=== PATIENT | female | born 1945 | race Caucasian/White ===

== ENCOUNTER 2020-05-16 10:37 | Outpatient (CLI) | payer MEDICARE, OTHER, SELFPAY ==
[2020-05-16 11:11] LABS: Basophils Absolute Auto 0.1 K/mm3 (0.0-0.1); Basophils Percent Auto 0.8 % (0.2-1.2); Eosinophils Absolute Auto 0.3 K/mm3 (0-0.3); Eosinophils Percent Auto 3.2 % (0-4.4); Hematocrit 37.3 % (37.0-47.0); Hemoglobin 12.1 g/dL (12.0-15.0); Immature Granulocyte Absolute 0.05 K/mm3 (0.00-0.031); Immature Granulocyte Percent A 0.6 % (0-0.5); Lymphocytes Absolute Auto 1.37 K/mm3 (0.9-3.2); Lymphocytes Percent Auto 15.5 % (18.3-44.2); Mean Corpuscular HGB Conc 32.4 g/dl (32-36); Mean Corpuscular Hemoglobin 31.6 pg (26-34); Mean Corpuscular Volume 97.4 fl (80-100); Mean Platelet Volume 9.8 fl (7.4-10.4); Monocytes Absolute Auto 0.5 K/mm3 (0.1-0.6); Neutrophils Absolute Auto 6.5 K/mm3 (1.3-6.7); Neutrophils Percent Auto 73.9 % (45.5-73.1); Platelet Count Result 309 k/mm3 (150-375); Red Blood Count 3.83 M/mm3 (4.2-5.4); White Blood Count 8.8 K/mm3 (4.5-10.0)
[2020-05-16 11:23] LABS: Alanine Aminotransferase 13 U/L (4-35); Albumin Level 4.5 g/dL (3.5-5.1); Alkaline Phosphatase 131 U/L (38-126); Aspartate Amino Transferase 21 U/L (14-36); Bilirubin,Total 0.4 mg/dL (0.2-1.3); Blood Urea Nitrogen 31 mg/dL (7-17); Calcium 9.2 mg/dL (8.4-10.2); Carbon Dioxide 22 mmol/L (22-30); Chloride 108 mmol/L (98-107); Cholesterol 152 mg/dL (0-200); Estimated Glomerular Filt Rate 40; Glucose 122 mg/dL (65-105); HDL Direct 49 mg/dL; Potassium 5.7 mmol/L (3.4-5.0); Sodium 141 mmol/L (137-145); Triglycerides 164 mg/dL (<150)
[2020-05-16 11:25] LABS: Hemoglobin A1C 6.5 % (<5.7)
[2020-05-16 11:35] LABS: LDL Cholesterol Direct 68 mg/dL
[2020-05-16 11:52] LABS: Microalbumin Urine Random 88.3 mg/L (0-16.7)
[2020-05-16 11:54] LABS: Creatinine Urine 112.9 mg/dL; MALB Creatinine Ratio 78.2 mg/g (0-30)
== END 2020-05-16 10:38 | disposition home or self-care (01) ==
LOC: ANHLAB 10:40
PROVIDERS: PCP Internal Medicine; Visit Provider Internal Medicine
DX: E11.22 Type 2 diabetes mellitus with diabetic chronic kidney disease (principal); N18.3 Chronic kidney disease, stage 3 (moderate); E78.5 Hyperlipidemia, unspecified; I12.9 Hypertensive chronic kidney disease with stage 1 through stage 4 chronic kidney disease, or unspecified chronic kidney disease
CPT/HCPCS: 36415; 80053; 80061; 82043; 83036; 85025

== ENCOUNTER 2020-05-17 07:30 | Outpatient (CLI) | payer MEDICARE, OTHER, SELFPAY ==
[2020-05-17 08:23] LABS: Potassium 5.6 mmol/L (3.4-5.0)
== END 2020-05-17 07:31 | disposition home or self-care (01) ==
LOC: ANHLAB 07:32
PROVIDERS: PCP Internal Medicine; Visit Provider Internal Medicine
DX: E87.5 Hyperkalemia (principal)
CPT/HCPCS: 36415; 84132

== ENCOUNTER 2020-05-21 07:48 | Outpatient (CLI) | payer MEDICARE, OTHER, SELFPAY ==
[2020-05-21 08:22] LABS: Blood Urea Nitrogen 29 mg/dL (7-17); Calcium 9.3 mg/dL (8.4-10.2); Carbon Dioxide 23 mmol/L (22-30); Chloride 109 mmol/L (98-107); Estimated Glomerular Filt Rate 44; Glucose 110 mg/dL (65-105); Potassium 5.6 mmol/L (3.4-5.0); Sodium 140 mmol/L (137-145)
== END 2020-05-21 07:49 | disposition home or self-care (01) ==
LOC: ANHLAB 07:49
PROVIDERS: PCP Internal Medicine; Visit Provider Internal Medicine
DX: E87.5 Hyperkalemia (principal)
CPT/HCPCS: 36415; 80048

== ENCOUNTER 2020-07-22 11:16 | Outpatient (CLI) | payer MEDICARE, OTHER, SELFPAY ==
--- NOTE | ~2020-07-22 | US_ITS ---
EXAMINATION: US renal BI EXAM DATE: 07/22/2020 11:53 INDICATION: Hyperkalemia. TECHNIQUE: Multiple grayscale and Doppler images of the kidneys were obtained (by a technologist who performed the scan) and subsequently reviewed. Comparison is made to prior examination from 10/08/2016 . FINDINGS: Some renal cortical thinning bilaterally. Right kidney: There is normal contour and echogenicity. It measures 9.0 x 5.3 x 4.6 centimeters. Th ere are no focal renal lesions identified. There is no hydronephrosis. Left kidney: There is normal contour and echogenicity. It measures 9.1 x 4.8 x 4.5 centimeters. The re are no focal renal lesions identified. There is no hydronephrosis. Bladder unremarkable. IMPRESSION: 1. Mild renal atrophy. Reviewed, dictated and finalized at location A. IMPRESSION: 1. Mild renal atrophy.
== END 2020-07-22 11:17 | disposition home or self-care (01) ==
PROVIDERS: PCP Internal Medicine; Visit Provider Internal Medicine Nephrology
DX: E87.5 Hyperkalemia (principal)
CPT/HCPCS: 76775

== ENCOUNTER 2020-09-08 10:21 | Outpatient (CLI) | payer MEDICARE, OTHER, SELFPAY ==
[2020-09-08 11:50] LABS: Creatinine Urine 96.3 mg/dL; Total Protein Urine Random 36 mg/dL
[2020-09-08 11:51] LABS: Albumin Level 4.2 g/dL (3.5-5.1); Anion Gap 7 mmol/L (8-16); Blood Urea Nitrogen 24 mg/dL (7-17); Calcium 8.9 mg/dL (8.4-10.2); Carbon Dioxide 26 mmol/L (22-30); Chloride 107 mmol/L (98-107); Estimated Glomerular Filt Rate 44; Glucose 109 mg/dL (65-105); Phosphorus 3.7 mg/dL (2.5-4.5); Potassium 5.2 mmol/L (3.4-5.0); Sodium 140 mmol/L (137-145)
[2020-09-08 12:20] LABS: Potassium Urine Random 36.2 meq/L; Sodium Urine Random 88 meq/L
[2020-09-11 07:35] LABS: Osmolality, Urine 519 mOsm/kg (50-1200)
[2020-09-17 07:44] LABS: Renin 0.63 ng/mL/h (0.25-5.82)
== END 2020-09-08 10:22 | disposition home or self-care (01) ==
LOC: ANHLAB 10:32
PROVIDERS: PCP Internal Medicine; Visit Provider Internal Medicine Nephrology
DX: E87.5 Hyperkalemia (principal); I12.9 Hypertensive chronic kidney disease with stage 1 through stage 4 chronic kidney disease, or unspecified chronic kidney disease; N18.30 Chronic kidney disease, stage 3 unspecified
CPT/HCPCS: 36415; 80069; 82088; 82533; 82570; 83930; 83935; 84133; 84156; 84244; 84300; 85999

== ENCOUNTER 2020-11-15 07:56 | Outpatient (CLI) | payer MEDICARE, OTHER, SELFPAY ==
[2020-11-15 08:29] LABS: Hematocrit 35.2 % (37.0-47.0); Hemoglobin 11.2 g/dL (12.0-15.0); Mean Corpuscular HGB Conc 31.8 g/dl (32-36); Mean Corpuscular Hemoglobin 31.4 pg (26-34); Mean Corpuscular Volume 98.6 fl (80-100); Mean Platelet Volume 9.7 fl (7.4-10.4); Platelet Count Result 317 k/mm3 (150-375); Red Blood Count 3.57 M/mm3 (4.2-5.4); Red Cell Distribution Width 12.7 % (11.5-14.5); White Blood Count 7.1 K/mm3 (4.5-10.0)
[2020-11-15 08:43] LABS: Alanine Aminotransferase 15 U/L (4-35); Albumin Level 4.2 g/dL (3.5-5.1); Alkaline Phosphatase 114 U/L (38-126); Anion Gap 8 mmol/L (8-16); Aspartate Amino Transferase 22 U/L (14-36); Bilirubin,Total 0.6 mg/dL (0.2-1.3); Blood Urea Nitrogen 23 mg/dL (7-17); Calcium 8.6 mg/dL (8.4-10.2); Carbon Dioxide 25 mmol/L (22-30); Chloride 106 mmol/L (98-107); Estimated Glomerular Filt Rate 48; Glucose 153 mg/dL (65-105); Potassium 4.5 mmol/L (3.4-5.0); Sodium 139 mmol/L (137-145)
[2020-11-15 08:56] LABS: Creatinine Urine 152.3 mg/dL
[2020-11-15 09:11] LABS: Vitamin D 25 Hydroxy 57.6 ng/mL
[2020-11-15 10:18] LABS: MALB Creatinine Ratio 388.4 mg/g (0-30); Microalbumin Urine Random 591.6 mg/L (0-16.7)
== END 2020-11-15 07:57 | disposition home or self-care (01) ==
PROVIDERS: PCP Internal Medicine; Referring Provider Internal Medicine Nephrology; Visit Provider Internal Medicine
DX: E11.22 Type 2 diabetes mellitus with diabetic chronic kidney disease (principal); E11.69 Type 2 diabetes mellitus with other specified complication; E27.49 Other adrenocortical insufficiency; E66.9 Obesity, unspecified; E78.5 Hyperlipidemia, unspecified; E87.5 Hyperkalemia; I12.9 Hypertensive chronic kidney disease with stage 1 through stage 4 chronic kidney disease, or unspecified chronic kidney disease; N18.30 Chronic kidney disease, stage 3 unspecified
CPT/HCPCS: 36415; 80053; 82043; 82306; 83036; 84443; 85027

== ENCOUNTER 2020-11-19 10:05 | Outpatient (CLI) | payer MEDICARE, OTHER, SELFPAY | END 2020-11-19 10:06 | disposition home or self-care (01) | LOC: ANHLAB 10:08 | PROVIDERS: PCP Internal Medicine; Visit Provider Internal Medicine | DX: E27.49 Other adrenocortical insufficiency (principal) | CPT/HCPCS: 36415; 82533 ==

== ENCOUNTER 2021-01-05 09:27 | Outpatient (CLI) | payer MEDICARE, OTHER, SELFPAY ==
[2021-01-05 10:14] LABS: Albumin Level 4.2 g/dL (3.5-5.1); Anion Gap 8 mmol/L (8-16); Blood Urea Nitrogen 24 mg/dL (7-17); Calcium 9.1 mg/dL (8.4-10.2); Carbon Dioxide 27 mmol/L (22-30); Chloride 105 mmol/L (98-107); Estimated Glomerular Filt Rate 44; Glucose 187 mg/dL (65-105); Phosphorus 3.5 mg/dL (2.5-4.5); Potassium 4.3 mmol/L (3.4-5.0); Sodium 140 mmol/L (137-145)
== END 2021-01-05 09:28 | disposition home or self-care (01) ==
PROVIDERS: PCP Internal Medicine; Visit Provider Internal Medicine Nephrology
DX: E87.5 Hyperkalemia (principal); E11.29 Type 2 diabetes mellitus with other diabetic kidney complication; N18.31 Chronic kidney disease, stage 3a
CPT/HCPCS: 36415; 80069; 82533

== ENCOUNTER 2021-01-14 12:19 | Outpatient (CLI) | payer MEDICARE, OTHER, SELFPAY ==
[2021-01-14 12:50] LABS: Hemoglobin A1C 6.5 % (<5.7)
[2021-01-14 13:15] LABS: Creatinine Urine 93.1 mg/dL
[2021-01-14 13:48] LABS: Microalbumin Urine Random > 570.0 mg/L (0-16.7)
== END 2021-01-14 12:20 | disposition home or self-care (01) ==
PROVIDERS: PCP Internal Medicine; Visit Provider Internal Medicine
DX: E66.9 Obesity, unspecified (principal); E11.69 Type 2 diabetes mellitus with other specified complication; E03.9 Hypothyroidism, unspecified
CPT/HCPCS: 36415; 82043; 83036; 84443

== ENCOUNTER 2021-03-11 10:50 | Outpatient (CLI) | payer MEDICARE, OTHER, SELFPAY ==
[2021-03-11 11:46] LABS: Albumin Level 4.1 g/dL (3.5-5.1); Anion Gap 7 mmol/L (8-16); Blood Urea Nitrogen 27 mg/dL (7-17); Calcium 9.3 mg/dL (8.4-10.2); Carbon Dioxide 27 mmol/L (22-30); Chloride 106 mmol/L (98-107); Estimated Glomerular Filt Rate 44; Glucose 193 mg/dL (65-105); Potassium 4.6 mmol/L (3.4-5.0); Sodium 140 mmol/L (137-145)
== END 2021-03-11 10:51 | disposition home or self-care (01) ==
PROVIDERS: PCP Internal Medicine; Referring Provider Internal Medicine; Visit Provider Internal Medicine Nephrology
DX: E87.5 Hyperkalemia (principal); N18.31 Chronic kidney disease, stage 3a; E11.29 Type 2 diabetes mellitus with other diabetic kidney complication
CPT/HCPCS: 36415; 80069

== ENCOUNTER 2021-05-14 10:28 | Outpatient (CLI) | payer MEDICARE, OTHER, SELFPAY ==
[2021-05-14 11:21] LABS: Basophils Absolute Auto 0.1 K/mm3 (0.0-0.1); Basophils Percent Auto 0.7 % (0.2-1.2); Eosinophils Absolute Auto 0.2 K/mm3 (0-0.3); Eosinophils Percent Auto 1.6 % (0-4.4); Hematocrit 35.7 % (37.0-47.0); Hemoglobin 11.2 g/dL (12.0-15.0); Immature Granulocyte Absolute 0.04 K/mm3 (0.00-0.031); Immature Granulocyte Percent A 0.4 % (0-0.5); Lymphocytes Absolute Auto 1.74 K/mm3 (0.9-3.2); Lymphocytes Percent Auto 17.2 % (18.3-44.2); Mean Corpuscular HGB Conc 31.4 g/dl (32-36); Mean Corpuscular Hemoglobin 30.4 pg (26-34); Mean Corpuscular Volume 96.7 fl (80-100); Mean Platelet Volume 9.5 fl (7.4-10.4); Monocytes Absolute Auto 0.7 K/mm3 (0.1-0.6); Monocytes Percent Auto 6.5 % (2.6-8.5); Neutrophils Absolute Auto 7.4 K/mm3 (1.3-6.7); Neutrophils Percent Auto 73.6 % (45.5-73.1); Platelet Count Result 321 k/mm3 (150-375); Red Blood Count 3.69 M/mm3 (4.2-5.4); Red Cell Distribution Width 13.2 % (11.5-14.5); White Blood Count 10.1 K/mm3 (4.5-10.0)
[2021-05-14 11:31] LABS: Albumin Level 4.3 g/dL (3.5-5.1); Anion Gap 7 mmol/L (8-16); Blood Urea Nitrogen 20 mg/dL (7-17); Calcium 8.8 mg/dL (8.4-10.2); Carbon Dioxide 24 mmol/L (22-30); Chloride 109 mmol/L (98-107); Estimated Glomerular Filt Rate 40; Glucose 109 mg/dL (65-105); Phosphorus 3.6 mg/dL (2.5-4.5); Potassium 5.3 mmol/L (3.4-5.0); Sodium 140 mmol/L (137-145)
[2021-05-14 11:40] LABS: Alanine Aminotransferase 14 U/L (4-35); Albumin Level 4.3 g/dL (3.5-5.1); Alkaline Phosphatase 132 U/L (38-126); Anion Gap 11 mmol/L (8-16); Aspartate Amino Transferase 26 U/L (14-36); Bilirubin,Total 0.4 mg/dL (0.2-1.3); Blood Urea Nitrogen 20 mg/dL (7-17); Calcium 8.9 mg/dL (8.4-10.2); Carbon Dioxide 23 mmol/L (22-30); Chloride 106 mmol/L (98-107); Cholesterol 156 mg/dL (0-200); Estimated Glomerular Filt Rate 40; Glucose 111 mg/dL (65-105); HDL Direct 56 mg/dL; Potassium 5.2 mmol/L (3.4-5.0); Sodium 140 mmol/L (137-145); Triglycerides 149 mg/dL (<150)
[2021-05-14 11:51] LABS: LDL Cholesterol Direct 62 mg/dL
[2021-05-14 12:08] LABS: Creatinine Urine 185.1 mg/dL
[2021-05-14 12:27] LABS: MALB Creatinine Ratio 130.3 mg/g (0-30); Microalbumin Urine Random 241.2 mg/L (0-16.7)
[2021-05-14 12:32] LABS: Hemoglobin A1C 6.8 % (<5.7)
== END 2021-05-14 10:29 | disposition home or self-care (01) ==
LOC: ANHLAB 10:31
PROVIDERS: PCP Internal Medicine; Visit Provider Internal Medicine Nephrology
DX: E87.5 Hyperkalemia (principal); I12.9 Hypertensive chronic kidney disease with stage 1 through stage 4 chronic kidney disease, or unspecified chronic kidney disease; E87.2 Acidosis; N18.30 Chronic kidney disease, stage 3 unspecified; E11.22 Type 2 diabetes mellitus with diabetic chronic kidney disease
CPT/HCPCS: 36415; 80053; 80061; 80069; 82043; 83036; 85025

== ENCOUNTER 2021-06-17 12:12 | Outpatient (CLI) | payer MEDICARE, OTHER, SELFPAY ==
[2021-06-17 13:15] LABS: Anion Gap 11 mmol/L (8-16); Blood Urea Nitrogen 23 mg/dL (7-17); Calcium 9.3 mg/dL (8.4-10.2); Carbon Dioxide 23 mmol/L (22-30); Chloride 106 mmol/L (98-107); Estimated Glomerular Filt Rate 40; Glucose 103 mg/dL (65-110); Potassium 4.8 mmol/L (3.4-5.0); Sodium 140 mmol/L (137-145)
== END 2021-06-17 12:13 | disposition home or self-care (01) ==
PROVIDERS: PCP Internal Medicine; Visit Provider Internal Medicine
DX: I10 Essential (primary) hypertension (principal)
CPT/HCPCS: 36415; 80048

== ENCOUNTER 2021-07-24 10:52 | Outpatient (CLI) | payer MEDICARE, OTHER, SELFPAY ==
[2021-07-24 12:01] LABS: Albumin Level 4.1 g/dL (3.5-5.1); Anion Gap 10 mmol/L (8-16); Blood Urea Nitrogen 23 mg/dL (7-17); Calcium 8.8 mg/dL (8.4-10.2); Carbon Dioxide 23 mmol/L (22-30); Chloride 106 mmol/L (98-107); Estimated Glomerular Filt Rate 44; Glucose 152 mg/dL (65-110); Phosphorus 3.5 mg/dL (2.5-4.5); Potassium 4.5 mmol/L (3.4-5.0); Sodium 139 mmol/L (137-145)
== END 2021-07-24 10:53 | disposition home or self-care (01) ==
PROVIDERS: PCP Internal Medicine; Visit Provider Internal Medicine Nephrology
DX: E87.5 Hyperkalemia (principal)
CPT/HCPCS: 36415; 80069

== ENCOUNTER 2021-09-22 10:29 | Outpatient (CLI) | payer MEDICARE, OTHER, SELFPAY ==
[2021-09-22 11:38] LABS: Creatinine Urine 135.1 mg/dL; Total Protein Urine Random 51 mg/dL; Ur Ttl Prot Creatinine Ratio 0.38 mg/mg (0-0.20)
[2021-09-22 11:43] LABS: Albumin Level 4.3 g/dL (3.5-5.1); Anion Gap 12 mmol/L (8-16); Blood Urea Nitrogen 22 mg/dL (7-17); Calcium 9.2 mg/dL (8.4-10.2); Carbon Dioxide 24 mmol/L (22-30); Chloride 104 mmol/L (98-107); Estimated Glomerular Filt Rate 44; Glucose 146 mg/dL (65-110); Phosphorus 3.5 mg/dL (2.5-4.5); Potassium 4.9 mmol/L (3.4-5.0); Sodium 140 mmol/L (137-145)
[2021-09-22 11:53] LABS: Parathyroid Intact 33.9 pg/mL (7.5-53.5)
[2021-09-22 11:59] LABS: Vitamin D 25 Hydroxy 57.6 ng/mL
== END 2021-09-22 10:30 | disposition home or self-care (01) ==
PROVIDERS: PCP Internal Medicine; Visit Provider Internal Medicine Nephrology
DX: I12.9 Hypertensive chronic kidney disease with stage 1 through stage 4 chronic kidney disease, or unspecified chronic kidney disease (principal); N18.31 Chronic kidney disease, stage 3a; E87.5 Hyperkalemia; E11.29 Type 2 diabetes mellitus with other diabetic kidney complication
CPT/HCPCS: 36415; 80069; 82306; 82570; 83970; 84156

== ENCOUNTER 2021-12-28 10:24 | Outpatient (CLI) | payer MEDICARE, OTHER, SELFPAY ==
[2021-12-28 10:47] LABS: Basophils Absolute Auto 0.1 K/mm3 (0.0-0.1); Basophils Percent Auto 0.7 % (0.2-1.2); Eosinophils Absolute Auto 0.3 K/mm3 (0-0.3); Eosinophils Percent Auto 3.6 % (0-4.4); Hematocrit 35.3 % (37.0-47.0); Hemoglobin 10.9 g/dL (12.0-15.0); Immature Granulocyte Absolute 0.03 K/mm3 (0.00-0.031); Immature Granulocyte Percent A 0.4 % (0-0.5); Immature Platelet Fraction Pct 2.4 % (0.9-11.2); Lymphocytes Absolute Auto 1.68 K/mm3 (0.9-3.2); Lymphocytes Percent Auto 20.6 % (18.3-44.2); Mean Corpuscular HGB Conc 30.9 g/dl (32-36); Mean Corpuscular Hemoglobin 31.1 pg (26-34); Mean Corpuscular Volume 100.9 fl (80-100); Mean Platelet Volume 9.6 fl (7.4-10.4); Monocytes Absolute Auto 0.7 K/mm3 (0.1-0.6); Monocytes Percent Auto 8.3 % (2.6-8.5); Neutrophils Absolute Auto 5.4 K/mm3 (1.3-6.7); Neutrophils Percent Auto 66.4 % (45.5-73.1); Platelet Count Result 362 k/mm3 (150-375); Red Cell Distribution Width 13.1 % (11.5-14.5); White Blood Count 8.2 K/mm3 (4.5-10.0)
[2021-12-28 11:01] LABS: Alanine Aminotransferase 17 U/L (4-35); Albumin Level 4.2 g/dL (3.5-5.1); Alkaline Phosphatase 126 U/L (38-126); Anion Gap 11 mmol/L (8-16); Aspartate Amino Transferase 24 U/L (14-36); Bilirubin,Total 0.5 mg/dL (0.2-1.3); Blood Urea Nitrogen 21 mg/dL (7-17); Carbon Dioxide 24 mmol/L (22-30); Chloride 107 mmol/L (98-107); Estimated Glomerular Filt Rate 48; Glucose 137 mg/dL (65-110); Potassium 4.5 mmol/L (3.4-5.0); Sodium 142 mmol/L (137-145)
[2021-12-28 11:24] LABS: Hemoglobin A1C 6.4 % (<5.7)
[2021-12-28 11:52] LABS: Creatinine Urine 151.5 mg/dL
[2021-12-28 14:05] LABS: MALB Creatinine Ratio 295.1 mg/g (0-30); Microalbumin Urine Random 447.1 mg/L (0-16.7)
== END 2021-12-28 10:25 | disposition home or self-care (01) ==
PROVIDERS: PCP Internal Medicine; Visit Provider Internal Medicine
DX: E11.22 Type 2 diabetes mellitus with diabetic chronic kidney disease (principal); E11.69 Type 2 diabetes mellitus with other specified complication; E55.9 Vitamin D deficiency, unspecified; E66.9 Obesity, unspecified; E78.5 Hyperlipidemia, unspecified; E03.9 Hypothyroidism, unspecified; I12.9 Hypertensive chronic kidney disease with stage 1 through stage 4 chronic kidney disease, or unspecified chronic kidney disease; N18.30 Chronic kidney disease, stage 3 unspecified
CPT/HCPCS: 36415; 80053; 82043; 83036; 84443; 85025; 85055

== ENCOUNTER 2022-01-08 10:28 | Outpatient (CLI) | payer MEDICARE, OTHER, SELFPAY ==
[2022-01-08 10:57] LABS: Basophils Absolute Auto 0.1 K/mm3 (0.0-0.1); Basophils Percent Auto 1.1 % (0.2-1.2); Eosinophils Absolute Auto 0.2 K/mm3 (0-0.3); Eosinophils Percent Auto 2.9 % (0-4.4); Hematocrit 35.6 % (37.0-47.0); Hemoglobin 11.1 g/dL (12.0-15.0); Immature Granulocyte Absolute 0.04 K/mm3 (0.00-0.031); Immature Granulocyte Percent A 0.5 % (0-0.5); Immature Reticulocyte Fraction 16.4 % (3.0-15.9); Lymphocytes Absolute Auto 1.58 K/mm3 (0.9-3.2); Lymphocytes Percent Auto 18.9 % (18.3-44.2); Mean Corpuscular HGB Conc 31.2 g/dl (32-36); Mean Corpuscular Hemoglobin 31.2 pg (26-34); Mean Platelet Volume 9.5 fl (7.4-10.4); Monocytes Absolute Auto 0.6 K/mm3 (0.1-0.6); Monocytes Percent Auto 6.7 % (2.6-8.5); Neutrophils Absolute Auto 5.8 K/mm3 (1.3-6.7); Neutrophils Percent Auto 69.9 % (45.5-73.1); Platelet Count Result 350 k/mm3 (150-375); Red Blood Count 3.56 M/mm3 (4.2-5.4); Red Cell Distribution Width 13.1 % (11.5-14.5); Reticulocyte Hemoglobin Conten 33.8 pg (28.2-35.7); Reticulocyte Percent 1.75 % (0.7-4.3); Reticulocytes Absolute 0.06 B/L (32.2-175.7); White Blood Count 8.4 K/mm3 (4.5-10.0)
[2022-01-08 11:11] LABS: Lactate Dehydrogenase 342 U/L (313-618)
[2022-01-08 12:18] LABS: Vitamin B12 > 1000.0 pg/mL (239-931)
== END 2022-01-08 10:29 | disposition home or self-care (01) ==
LOC: ANHLAB 10:32
PROVIDERS: PCP Internal Medicine; Visit Provider Internal Medicine
DX: D53.1 Other megaloblastic anemias, not elsewhere classified (principal)
CPT/HCPCS: 36415; 82607; 82746; 83615; 85025; 85046

== ENCOUNTER 2022-03-17 00:50 | Day surgery (SDC) | payer MEDICARE, OTHER, SELFPAY ==
[2022-02-26 09:00] VITALS: BMI 30.2
--- NOTE | 2022-03-17 07:10 | PM.HPGS ---
History of Present Illness History of Present Illness Consent: Risks, benefits, and alternatives have been discussed and questions answered. Patient agrees to proceed with procedure. Chief complaint: neoplasm screening Narrative: Haylee Smith is a 76 year old female Referred for colon cancer screening. Review of Systems Review of Systems: All systems reviewed & are unremarkable except as noted in HPI and below PMFSH Family History Family History Mother Family history of Alzheimer's disease Family history of malignant melanoma Sibling Cerebrovascular accident Family history of diabetes mellitus in first degree relative Family history of thyroid disease Hypertension Father Malignant neoplasm of prostate Family history of malignant neoplasm of bone Grandparent Family history of primary malignant neoplasm of liver Other Diabetes mellitus Social History Social History Smoking status: Never smoker Second hand tobacco smoke exposure: Yes Alcohol intake: never Alcohol use details: Social Substance use: never Substance use type: does not use Living arrangements: with family Spiritual care concerns: No Meds Home Medications and Allergies Home Medications Medication Instructions Recorded Confirmed Type aspirin 81 mg tablet,delayed 81 mg PO DAILY 11/14/19 02/26/22 History release calcium citrate 250 mg PO DAILY 11/14/19 02/26/22 History cranberry 400 mg capsule 400 mg PO DAILY 11/14/19 02/26/22 History blood-glucose meter #1 each 12/11/19 01/05/22 Rx cholecalciferol (vitamin D3) 25 25 mcg PO DAILY 05/14/20 02/26/22 History mcg (1,000 unit) chewable tablet amlodipine 10 mg tablet 10 mg PO DAILY #90 tablet 05/20/21 02/26/22 Rx blood sugar diagnostic See Rx Instructions .ROUTE 09/24/21 02/26/22 Rx .COMPLEX #100 strip semaglutide [Rybelsus] 3 mg PO DAILY 02/26/22 02/26/22 History atorvastatin 40 mg tablet 40 mg PO DAILY #90 tablet 03/01/22 Rx metformin 1,000 mg tablet See Rx Instructions .ROUTE 03/01/22 Rx .COMPLEX #180 tablet carvedilol 6.25 mg tablet 6.25 mg PO BID #180 tablet 03/15/22 Rx levothyroxine 50 mcg tablet 50 mcg PO DAILY #90 tablet 05/09/22 Rx lisinopril 20 mg tablet 20 mg PO DAILY #90 tablet 03/15/22 Rx omeprazole 20 mg capsule,delayed See Rx Instructions .ROUTE 03/15/22 Rx release .COMPLEX #90 cap Allergies Allergy/AdvReac Type Severity Reaction Status Date / Time metronidazole Allergy Mild Hives Verified 03/17/22 07:33 Sulfa (Sulfonamide Allergy Mild Hives Verified 03/17/22 07:33 Antibiotics) sulfanilamide Allergy Mild Hives Verified 03/17/22 07:33 Exam Resp: Auscultation: clear to auscultation bilaterally Cardio: Rate: regular rate Rhythm: regular rhythm GI: GI Palp: Yes Soft to palpation and No Tenderness to palpation present (GI) Assessment and Plan Assessment and plan (1) Encounter for screening colonoscopy: Code(s): Z12.11 - Encounter for screening for malignant neoplasm of colon Status: Acute Assessment and Plan: Colonoscopy with possible biopsy or polypectomy or cautery or injection of substances.
[2022-03-17 07:25] VITALS: BP 182/84; PULSE 98; RESP 16; TEMP 36.1; O2SAT 99; BMI 29.3
[2022-03-17] MEDS: LACTATED RINGERS 1,000 ML 150 ML IV CONT (07:48)
[2022-03-17 07:49] LABS: Glucose Point of Care 173 mg/dl (65-105)
--- NOTE | 2022-03-17 07:58 | WPDANESEPPF ---
Anes - Initial Pre Proc Eval Procedure: Operation Date: 03/17/22 09:00 Proposed Procedures p Screening Colonoscopy - Solo Le MD Date/Time: 03/17/22 07:58 Surgeon: Solo Le MD Pre Op Diagnosis: neoplasm screening Patient Data Age: 76 Gender: F Height: 1.68 m Weight: 82.4 kg Last Vital Signs Temp 97.0 F L 03/17/22 07:25 Pulse 98 03/17/22 07:25 Resp 16 03/17/22 07:25 BP 182/84 H 03/17/22 07:25 Pulse Ox 99 03/17/22 07:25 Allergies Allergy/AdvReac Type Severity Reaction Status Date / Time metronidazole Allergy Mild Hives Verified 03/17/22 07:33 Sulfa (Sulfonamide Allergy Mild Hives Verified 03/17/22 07:33 Antibiotics) sulfanilamide Allergy Mild Hives Verified 03/17/22 07:33 Home Medications Medication Instructions Recorded Confirmed Type aspirin 81 mg tablet,delayed 81 mg PO DAILY 11/14/19 03/17/22 History release calcium citrate 250 mg PO DAILY 11/14/19 03/17/22 History cranberry 400 mg capsule 400 mg PO DAILY 11/14/19 03/17/22 History blood-glucose meter #1 each 12/11/19 03/17/22 Rx cholecalciferol (vitamin D3) 25 25 mcg PO DAILY 05/14/20 03/17/22 History mcg (1,000 unit) chewable tablet amlodipine 10 mg tablet 10 mg PO DAILY #90 tablet 05/20/21 03/17/22 Rx blood sugar diagnostic See Rx Instructions .ROUTE 09/24/21 03/17/22 Rx .COMPLEX #100 strip semaglutide [Rybelsus] 3 mg PO DAILY 02/26/22 03/17/22 History atorvastatin 40 mg tablet 40 mg PO DAILY #90 tablet 03/01/22 03/17/22 Rx metformin 1,000 mg tablet See Rx Instructions .ROUTE 03/01/22 03/17/22 Rx .COMPLEX #180 tablet carvedilol 6.25 mg tablet 6.25 mg PO BID #180 tablet 03/15/22 03/17/22 Rx levothyroxine 50 mcg tablet 50 mcg PO DAILY #90 tablet 03/15/22 03/17/22 Rx lisinopril 20 mg tablet 20 mg PO DAILY #90 tablet 03/15/22 03/17/22 Rx omeprazole 20 mg capsule,delayed See Rx Instructions .ROUTE 03/15/22 03/17/22 Rx release .COMPLEX #90 cap Laboratory Tests 03/17/22 07:41 POC Capillary Glucose 173 mg/dl H mg/dl (65-105) Patient hx anesthesia problems: none Family hx anesthesia problems: none Results Review: All pre-operative results and documents have been reviewed as part of the pre-operative evaluation. [facility] Family History Family History Mother Family history of Alzheimer's disease Family history of malignant melanoma Sibling Cerebrovascular accident Family history of diabetes mellitus in first degree relative Family history of thyroid disease Hypertension Father Malignant neoplasm of prostate Family history of malignant neoplasm of bone Grandparent Family history of primary malignant neoplasm of liver Other Diabetes mellitus Social History Social History Smoking status: Never smoker Second hand tobacco smoke exposure: Yes Alcohol intake: never Alcohol use details: Social Substance use: never Substance use type: does not use Living arrangements: with family Spiritual care concerns: No Anes - Eval Final PreProcedure Day of Procedure 03/17/22 07:58 Patient weight: obese Heart: regular rate and rhythm Lungs: clear to auscultation Airway: Mallampati scale class III Neurological: alert and oriented Last oral intake: >/= 8 hours ASA classification: III Emergent: no Anesthetic plan: proceed Anesthesia type and monitoring: general GIVS and standard monitoring Results Review: All pre-operative results and documents have been reviewed as part of the pre-operative evaluation. Informed Consent: The patient's anesthetic plan and its attendant risks and benefits were discussed with the patient/family/POA. Questions were solicited and answers provided to the satisfaction of the patient/family/POA.
[2022-03-17 08:46] VITALS: BP 107/55; PULSE 71; RESP 27; O2SAT 95
[2022-03-17 08:56] VITALS: BP 133/65; PULSE 75; RESP 21; O2SAT 97
[2022-03-17 09:06] VITALS: BP 136/69; PULSE 72; RESP 20; O2SAT 98
== END 2022-03-17 09:18 | disposition home or self-care (01) ==
PROVIDERS: PCP Internal Medicine; Visit Provider Internal Medicine Gastroenterology
PROC: 0DJD8ZZ Inspection of Lower Intestinal Tract, Via Natural or Artificial Opening Endoscopic (ICD-10-PCS; CPT 45378; principal; 2022-03-17 09:00)
DX: Z12.11 Encounter for screening for malignant neoplasm of colon (principal); K64.8 Other hemorrhoids; K57.30 Diverticulosis of large intestine without perforation or abscess without bleeding; Z79.84 Long term (current) use of oral hypoglycemic drugs; E66.9 Obesity, unspecified; Z68.29 Body mass index [BMI] 29.0-29.9, adult
CPT/HCPCS: G0121; 82948; J2704; J7120

== ENCOUNTER 2022-03-25 11:11 | Outpatient (CLI) | payer MEDICARE, OTHER, SELFPAY ==
[2022-03-25 11:33] LABS: Basophils Absolute Auto 0.1 K/mm3 (0.0-0.1); Basophils Percent Auto 0.8 % (0.2-1.2); Eosinophils Absolute Auto 0.2 K/mm3 (0-0.3); Eosinophils Percent Auto 1.8 % (0-4.4); Hematocrit 36.5 % (37.0-47.0); Hemoglobin 11.3 g/dL (12.0-15.0); Immature Granulocyte Absolute 0.04 K/mm3 (0.00-0.031); Immature Granulocyte Percent A 0.4 % (0-0.5); Lymphocytes Absolute Auto 1.59 K/mm3 (0.9-3.2); Mean Corpuscular Hemoglobin 30.9 pg (26-34); Mean Corpuscular Volume 99.7 fl (80-100); Mean Platelet Volume 9.6 fl (7.4-10.4); Monocytes Absolute Auto 0.6 K/mm3 (0.1-0.6); Monocytes Percent Auto 5.9 % (2.6-8.5); Neutrophils Absolute Auto 8.1 K/mm3 (1.3-6.7); Neutrophils Percent Auto 76.1 % (45.5-73.1); Platelet Count Result 361 k/mm3 (150-375); Red Blood Count 3.66 M/mm3 (4.2-5.4); Red Cell Distribution Width 12.8 % (11.5-14.5); White Blood Count 10.6 K/mm3 (4.5-10.0)
[2022-03-25 15:27] LABS: Iron 67 ug/dL (37-170)
[2022-03-25 15:29] LABS: Alanine Aminotransferase 13 U/L (6-35); Albumin Level 4.4 g/dL (3.5-5.1); Alkaline Phosphatase 128 U/L (38-126); Anion Gap 11 mmol/L (8-16); Aspartate Amino Transferase 21 U/L (14-36); Bilirubin,Total 0.5 mg/dL (0.2-1.3); Blood Urea Nitrogen 28 mg/dL (7-17); Carbon Dioxide 23 mmol/L (22-30); Chloride 103 mmol/L (98-107); Estimated Glomerular Filt Rate 44; Glucose 116 mg/dL (65-110); Potassium 4.7 mmol/L (3.4-5.0); Sodium 137 mmol/L (137-145)
[2022-03-25 15:36] LABS: Percent Iron Saturation 20 % (20-50)
[2022-03-25 17:18] LABS: Folic Acid 14.9 ng/mL (2.76->20); Vitamin B12 > 1000.0 pg/mL (239-931)
[2022-03-29 23:56] LABS: Methylmalonic Acid 192 nmol/L (87-318)
== END 2022-03-25 11:12 | disposition home or self-care (01) ==
LOC: ANHLAB 11:13
PROVIDERS: PCP Internal Medicine; Visit Provider Internal Medicine Hematology & Oncology
DX: D64.9 Anemia, unspecified (principal)
CPT/HCPCS: 36415; 80053; 82607; 82728; 82746; 83540; 83550; 83921; 84443; 85025

== ENCOUNTER 2022-07-15 10:27 | Outpatient (CLI) | payer MEDICARE, OTHER, SELFPAY ==
[2022-07-15 12:13] LABS: Alanine Aminotransferase 12 U/L (6-35); Albumin Level 4.4 g/dL (3.5-5.1); Alkaline Phosphatase 112 U/L (38-126); Anion Gap 14 mmol/L (8-16); Aspartate Amino Transferase 20 U/L (14-36); Bilirubin,Total 0.6 mg/dL (0.2-1.3); Blood Urea Nitrogen 18 mg/dL (7-17); Calcium 8.7 mg/dL (8.4-10.2); Carbon Dioxide 24 mmol/L (22-30); Chloride 103 mmol/L (98-107); Cholesterol 134 mg/dL (0-200); Estimated Glomerular Filt Rate 48; Glucose 101 mg/dL (65-110); HDL Direct 46 mg/dL; Sodium 141 mmol/L (137-145); Triglycerides 104 mg/dL (<150)
[2022-07-15 12:24] LABS: LDL Cholesterol Direct 51 mg/dL
[2022-07-15 12:39] LABS: Vitamin D 25 Hydroxy 52.3 ng/mL
== END 2022-07-15 10:28 | disposition home or self-care (01) ==
LOC: ANHLAB 10:35
PROVIDERS: PCP Internal Medicine; Visit Provider Internal Medicine
DX: E11.69 Type 2 diabetes mellitus with other specified complication (principal); E66.9 Obesity, unspecified; I10 Essential (primary) hypertension; E78.5 Hyperlipidemia, unspecified; E03.9 Hypothyroidism, unspecified; E11.29 Type 2 diabetes mellitus with other diabetic kidney complication; R80.9 Proteinuria, unspecified; E55.9 Vitamin D deficiency, unspecified
CPT/HCPCS: 36415; 80053; 80061; 82306; 83036; 84443

== ENCOUNTER 2022-09-07 09:41 | Outpatient (CLI) | payer MEDICARE, OTHER, SELFPAY ==
[2022-09-07 09:57] LABS: Basophils Absolute Auto 0.1 K/mm3 (0.0-0.1); Basophils Percent Auto 0.8 % (0.2-1.2); Eosinophils Absolute Auto 0.3 K/mm3 (0-0.3); Eosinophils Percent Auto 3.2 % (0-4.4); Hemoglobin 11.7 g/dL (12.0-15.0); Immature Granulocyte Absolute 0.04 K/mm3 (0.00-0.031); Immature Granulocyte Percent A 0.5 % (0-0.5); Lymphocytes Absolute Auto 1.55 K/mm3 (0.9-3.2); Lymphocytes Percent Auto 17.7 % (18.3-44.2); Mean Corpuscular HGB Conc 31.6 g/dl (32-36); Mean Corpuscular Hemoglobin 31.5 pg (26-34); Mean Corpuscular Volume 99.7 fl (80-100); Mean Platelet Volume 9.3 fl (7.4-10.4); Monocytes Absolute Auto 0.6 K/mm3 (0.1-0.6); Monocytes Percent Auto 6.9 % (2.6-8.5); Neutrophils Absolute Auto 6.2 K/mm3 (1.3-6.7); Neutrophils Percent Auto 70.9 % (45.5-73.1); Platelet Count Result 350 k/mm3 (150-375); Red Blood Count 3.71 M/mm3 (4.2-5.4); Red Cell Distribution Width 12.7 % (11.5-14.5); White Blood Count 8.8 K/mm3 (4.5-10.0)
[2022-09-07 10:39] LABS: Iron 54 ug/dL (37-170)
[2022-09-07 10:48] LABS: Percent Iron Saturation 16 % (20-50)
[2022-09-07 10:54] LABS: Anion Gap 13 mmol/L (8-16); Blood Urea Nitrogen 24 mg/dL (7-17); Calcium 8.8 mg/dL (8.4-10.2); Carbon Dioxide 22 mmol/L (22-30); Chloride 103 mmol/L (98-107); Estimated Glomerular Filt Rate 44; Glucose 132 mg/dL (65-110); Potassium 4.8 mmol/L (3.4-5.0); Sodium 138 mmol/L (137-145)
[2022-09-07 11:55] LABS: Folic Acid 15.8 ng/mL (2.76->20); Vitamin B12 > 1000.0 pg/mL (239-931)
== END 2022-09-07 09:42 | disposition home or self-care (01) ==
PROVIDERS: PCP Internal Medicine; Visit Provider Internal Medicine Hematology & Oncology
DX: D64.9 Anemia, unspecified (principal)
CPT/HCPCS: 36415; 80048; 82607; 82728; 82746; 83540; 83550; 85025

== ENCOUNTER 2023-01-20 10:24 | Outpatient (CLI) | payer MEDICARE, OTHER, SELFPAY ==
[2023-01-20 11:25] LABS: Alanine Aminotransferase 14 U/L (6-35); Albumin Level 4.4 g/dL (3.5-5.1); Alkaline Phosphatase 123 U/L (38-126); Anion Gap 7 mmol/L (8-16); Aspartate Amino Transferase 20 U/L (14-36); Bilirubin,Total 0.7 mg/dL (0.2-1.3); Blood Urea Nitrogen 28 mg/dL (7-17); Calcium 8.7 mg/dL (8.4-10.2); Carbon Dioxide 26 mmol/L (22-30); Chloride 108 mmol/L (98-107); Cholesterol 149 mg/dL (0-200); Estimated Glomerular Filt Rate 48; Glucose 116 mg/dL (65-110); HDL Direct 45 mg/dL; Potassium 4.7 mmol/L (3.4-5.0); Sodium 141 mmol/L (137-145); Triglycerides 152 mg/dL (<150)
[2023-01-20 11:36] LABS: LDL Cholesterol Direct 63 mg/dL
[2023-01-20 11:39] LABS: Hemoglobin A1C 6.5 % (<5.7)
[2023-01-20 11:43] LABS: Vitamin D 25 Hydroxy 51.7 ng/mL
== END 2023-01-20 10:25 | disposition home or self-care (01) ==
PROVIDERS: Internal Medicine; PCP Internal Medicine; Visit Provider Internal Medicine
DX: E55.9 Vitamin D deficiency, unspecified (principal); E11.69 Type 2 diabetes mellitus with other specified complication; E66.9 Obesity, unspecified; E78.5 Hyperlipidemia, unspecified; E03.9 Hypothyroidism, unspecified; E11.22 Type 2 diabetes mellitus with diabetic chronic kidney disease; I12.9 Hypertensive chronic kidney disease with stage 1 through stage 4 chronic kidney disease, or unspecified chronic kidney disease; N18.30 Chronic kidney disease, stage 3 unspecified
CPT/HCPCS: 36415; 80053; 80061; 82306; 83036; 84443

== ENCOUNTER 2023-03-08 10:17 | Outpatient (CLI) | payer MEDICARE, OTHER, SELFPAY ==
[2023-03-08 10:31] LABS: Basophils Absolute Auto 0.1 K/mm3 (0.0-0.1); Eosinophils Absolute Auto 0.3 K/mm3 (0-0.3); Eosinophils Percent Auto 3.9 % (0-4.4); Hemoglobin 11.3 g/dL (12.0-15.0); Immature Granulocyte Absolute 0.05 K/mm3 (0.00-0.031); Immature Granulocyte Percent A 0.6 % (0-0.5); Lymphocytes Absolute Auto 1.61 K/mm3 (0.9-3.2); Lymphocytes Percent Auto 19.7 % (18.3-44.2); Mean Corpuscular HGB Conc 31.4 g/dl (32-36); Mean Corpuscular Volume 98.6 fl (80-100); Mean Platelet Volume 9.2 fl (7.4-10.4); Monocytes Absolute Auto 0.7 K/mm3 (0.1-0.6); Monocytes Percent Auto 8.1 % (2.6-8.5); Neutrophils Absolute Auto 5.4 K/mm3 (1.3-6.7); Neutrophils Percent Auto 66.7 % (45.5-73.1); Platelet Count Result 333 k/mm3 (150-375); Red Blood Count 3.65 M/mm3 (4.2-5.4); White Blood Count 8.2 K/mm3 (4.5-10.0)
[2023-03-08 10:58] LABS: Anion Gap 9 mmol/L (8-16); Blood Urea Nitrogen 24 mg/dL (7-17); Calcium 8.7 mg/dL (8.4-10.2); Carbon Dioxide 25 mmol/L (22-30); Chloride 105 mmol/L (98-107); Estimated Glomerular Filt Rate 44; Glucose 137 mg/dL (65-110); Sodium 139 mmol/L (137-145)
[2023-03-08 12:02] LABS: Folic Acid 9.8 ng/mL (2.76->20)
[2023-03-08 17:01] LABS: Iron 34 ug/dL (37-170)
[2023-03-08 17:12] LABS: Percent Iron Saturation 9 % (20-50)
== END 2023-03-08 10:18 | disposition home or self-care (01) ==
LOC: ANHLAB 10:19
PROVIDERS: PCP Internal Medicine; Visit Provider Internal Medicine Hematology & Oncology
DX: D64.9 Anemia, unspecified (principal)
CPT/HCPCS: 36415; 80048; 82607; 82728; 82746; 83540; 83550; 85025

== ENCOUNTER 2023-07-28 10:33 | Outpatient (CLI) | payer MEDICARE, OTHER, SELFPAY ==
[2023-07-28 11:07] LABS: Alanine Aminotransferase 22 U/L (6-35); Albumin Level 4.1 g/dL (3.5-5.1); Alkaline Phosphatase 99 U/L (38-126); Anion Gap 9 mmol/L (8-16); Aspartate Amino Transferase 27 U/L (14-36); Bilirubin,Total 0.6 mg/dL (0.2-1.3); Blood Urea Nitrogen 18 mg/dL (7-17); Calcium 8.7 mg/dL (8.4-10.2); Carbon Dioxide 26 mmol/L (22-30); Chloride 105 mmol/L (98-107); Cholesterol 132 mg/dL (0-200); Estimated Glomerular Filt Rate 48; Glucose 117 mg/dL (65-110); HDL Direct 46 mg/dL; Potassium 4.6 mmol/L (3.4-5.0); Sodium 140 mmol/L (137-145); Triglycerides 120 mg/dL (<150)
[2023-07-28 11:19] LABS: LDL Cholesterol Direct 60 mg/dL
[2023-07-28 11:30] LABS: Hemoglobin A1C 6.3 % (<5.7)
== END 2023-07-28 10:34 | disposition home or self-care (01) ==
LOC: ANHLAB 10:37
PROVIDERS: PCP Internal Medicine; Visit Provider Nurse Practitioner
DX: E03.9 Hypothyroidism, unspecified (principal); E11.9 Type 2 diabetes mellitus without complications; E78.5 Hyperlipidemia, unspecified
CPT/HCPCS: 36415; 80053; 80061; 83036; 84443

== ENCOUNTER 2023-09-08 11:27 | Outpatient (CLI) | payer MEDICARE, OTHER, SELFPAY ==
[2023-09-08 11:42] LABS: Basophils Absolute Auto 0.1 K/mm3 (0.0-0.1); Basophils Percent Auto 1.1 % (0.2-1.2); Eosinophils Absolute Auto 0.3 K/mm3 (0-0.3); Eosinophils Percent Auto 3.6 % (0-4.4); Hematocrit 35.2 % (37.0-47.0); Hemoglobin 11.3 g/dL (12.0-15.0); Immature Granulocyte Absolute 0.03 K/mm3 (0.00-0.031); Immature Granulocyte Percent A 0.4 % (0-0.5); Lymphocytes Absolute Auto 1.62 K/mm3 (0.9-3.2); Lymphocytes Percent Auto 20.2 % (18.3-44.2); Mean Corpuscular HGB Conc 32.1 g/dl (32-36); Mean Corpuscular Hemoglobin 32.2 pg (26-34); Mean Corpuscular Volume 100.3 fl (80-100); Mean Platelet Volume 8.6 fl (7.4-10.4); Monocytes Absolute Auto 0.7 K/mm3 (0.1-0.6); Monocytes Percent Auto 8.7 % (2.6-8.5); Neutrophils Absolute Auto 5.3 K/mm3 (1.3-6.7); Platelet Count Result 323 k/mm3 (150-375); Red Blood Count 3.51 M/mm3 (4.2-5.4); Red Cell Distribution Width 13.1 % (11.5-14.5)
[2023-09-08 16:57] LABS: Iron 75 ug/dL (37-170)
[2023-09-08 17:07] LABS: Percent Iron Saturation 26 % (20-50)
[2023-09-08 17:47] LABS: Anion Gap 10 mmol/L (8-16); Blood Urea Nitrogen 21 mg/dL (7-17); Calcium 9.2 mg/dL (8.4-10.2); Carbon Dioxide 24 mmol/L (22-30); Chloride 106 mmol/L (98-107); Estimated Glomerular Filt Rate 43; Glucose 141 mg/dL (65-110); Potassium 4.7 mmol/L (3.4-5.0); Sodium 140 mmol/L (137-145)
[2023-09-08 19:06] LABS: Folic Acid 13.1 ng/mL (2.76->20)
== END 2023-09-08 11:28 | disposition home or self-care (01) ==
LOC: ANHLAB 11:30
PROVIDERS: PCP Nurse Practitioner; Visit Provider Internal Medicine Hematology & Oncology
DX: D64.9 Anemia, unspecified (principal)
CPT/HCPCS: 36415; 80048; 82607; 82728; 82746; 83540; 83550; 85025

== ENCOUNTER 2024-01-26 10:24 | Outpatient (CLI) | payer MEDICARE, OTHER, SELFPAY ==
[2024-01-26 10:59] LABS: Alanine Aminotransferase 15 U/L (6-35); Albumin Level 4.1 g/dL (3.5-5.1); Alkaline Phosphatase 117 U/L (38-126); Anion Gap 5 mmol/L (8-16); Aspartate Amino Transferase 20 U/L (14-36); Bilirubin,Total 0.6 mg/dL (0.2-1.3); Blood Urea Nitrogen 21 mg/dL (7-17); Calcium 8.9 mg/dL (8.4-10.2); Carbon Dioxide 27 mmol/L (22-30); Chloride 107 mmol/L (98-107); Cholesterol 154 mg/dL (0-200); Estimated Glomerular Filt Rate 54; Glucose 142 mg/dL (65-110); HDL Direct 54 mg/dL; Potassium 4.6 mmol/L (3.4-5.0); Sodium 139 mmol/L (137-145); Triglycerides 129 mg/dL (<150)
[2024-01-26 11:10] LABS: LDL Cholesterol Direct 81 mg/dL
[2024-01-26 11:55] LABS: Vitamin D 25 Hydroxy 55.2 ng/mL
[2024-01-27 11:35] LABS: Hemoglobin A1C 6.6 % (<5.7)
== END 2024-01-26 10:25 | disposition home or self-care (01) ==
LOC: ANHLAB 10:27
PROVIDERS: PCP Nurse Practitioner; Visit Provider Nurse Practitioner
DX: E78.5 Hyperlipidemia, unspecified (principal); E11.9 Type 2 diabetes mellitus without complications; E03.9 Hypothyroidism, unspecified; E55.9 Vitamin D deficiency, unspecified
CPT/HCPCS: 36415; 80053; 80061; 82306; 83036; 84443

== ENCOUNTER 2024-03-15 10:47 | Outpatient (CLI) | payer MEDICARE, OTHER, SELFPAY ==
[2024-03-15 11:05] LABS: Basophils Absolute Auto 0.1 K/mm3 (0.0-0.1); Basophils Percent Auto 0.9 % (0.2-1.2); Eosinophils Absolute Auto 0.3 K/mm3 (0-0.3); Eosinophils Percent Auto 3.5 % (0-4.4); Hematocrit 36.3 % (37.0-47.0); Hemoglobin 11.5 g/dL (12.0-15.0); Immature Granulocyte Absolute 0.03 K/mm3 (0.00-0.031); Immature Granulocyte Percent A 0.4 % (0-0.5); Lymphocytes Absolute Auto 1.69 K/mm3 (0.9-3.2); Lymphocytes Percent Auto 21.6 % (18.3-44.2); Mean Corpuscular HGB Conc 31.7 g/dl (32-36); Mean Corpuscular Hemoglobin 31.9 pg (26-34); Mean Corpuscular Volume 100.6 fl (80-100); Mean Platelet Volume 8.9 fl (7.4-10.4); Monocytes Absolute Auto 0.6 K/mm3 (0.1-0.6); Monocytes Percent Auto 8.2 % (2.6-8.5); Neutrophils Absolute Auto 5.1 K/mm3 (1.3-6.7); Neutrophils Percent Auto 65.4 % (45.5-73.1); Platelet Count Result 329 k/mm3 (150-375); Red Blood Count 3.61 M/mm3 (4.2-5.4); Red Cell Distribution Width 12.5 % (11.5-14.5); White Blood Count 7.8 K/mm3 (4.5-10.0)
[2024-03-15 12:24] LABS: Anion Gap 10 mmol/L (4-12); Blood Urea Nitrogen 18 mg/dL (7-17); Calcium 9.1 mg/dL (8.4-10.2); Carbon Dioxide 24 mmol/L (22-30); Chloride 107 mmol/L (98-107); Estimated Glomerular Filt Rate 43; Glucose 120 mg/dL (65-110); Potassium 4.5 mmol/L (3.4-5.0); Sodium 141 mmol/L (137-145)
[2024-03-15 12:26] LABS: Iron 74 ug/dL (37-170)
[2024-03-15 12:37] LABS: Percent Iron Saturation 26 % (20-50)
[2024-03-15 13:31] LABS: Folic Acid 14.1 ng/mL (2.76->20)
== END 2024-03-15 10:48 | disposition home or self-care (01) ==
LOC: ANHLAB 10:49
PROVIDERS: PCP Nurse Practitioner; Visit Provider Internal Medicine Hematology & Oncology
DX: D64.9 Anemia, unspecified (principal)
CPT/HCPCS: 36415; 80048; 82607; 82728; 82746; 83540; 83550; 85025

== ENCOUNTER 2024-08-06 10:27 | Outpatient (CLI) | payer MEDICARE, OTHER, SELFPAY ==
[2024-08-06 10:48] LABS: Hematocrit 35.6 % (37.0-47.0); Hemoglobin 11.5 g/dL (12.0-15.0); Mean Corpuscular HGB Conc 32.3 g/dl (32-36); Mean Corpuscular Hemoglobin 32.7 pg (26-34); Mean Corpuscular Volume 101.1 fl (80-100); Mean Platelet Volume 9.3 fl (7.4-10.4); Platelet Count Result 329 k/mm3 (150-375); Red Blood Count 3.52 M/mm3 (4.2-5.4); Red Cell Distribution Width 12.8 % (11.5-14.5); White Blood Count 8.3 K/mm3 (4.5-10.0)
[2024-08-06 10:59] LABS: Alanine Aminotransferase 17 U/L (6-35); Albumin Level 4.2 g/dL (3.5-5.1); Alkaline Phosphatase 111 U/L (38-126); Anion Gap 10 mmol/L (4-12); Aspartate Amino Transferase 21 U/L (14-36); Bilirubin,Total 0.5 mg/dL (0.2-1.3); Blood Urea Nitrogen 21 mg/dL (7-17); Calcium 8.8 mg/dL (8.4-10.2); Carbon Dioxide 24 mmol/L (22-30); Chloride 105 mmol/L (98-107); Cholesterol 149 mg/dL (0-200); Estimated Glomerular Filt Rate 48; Glucose 152 mg/dL (65-110); HDL Direct 48 mg/dL; Potassium 4.2 mmol/L (3.4-5.0); Sodium 139 mmol/L (137-145); Triglycerides 147 mg/dL (<150)
[2024-08-06 11:04] LABS: Hemoglobin A1C 6.5 % (<5.7)
[2024-08-06 11:10] LABS: LDL Cholesterol Direct 63 mg/dL
== END 2024-08-06 10:28 | disposition home or self-care (01) ==
LOC: ANHLAB 10:30
PROVIDERS: PCP Nurse Practitioner; Visit Provider Nurse Practitioner
DX: E78.5 Hyperlipidemia, unspecified (principal); E03.9 Hypothyroidism, unspecified; E11.9 Type 2 diabetes mellitus without complications; D53.1 Other megaloblastic anemias, not elsewhere classified
CPT/HCPCS: 36415; 80053; 80061; 83036; 84443; 85027

== ENCOUNTER 2024-09-21 10:35 | Outpatient (CLI) | payer MEDICARE, OTHER, SELFPAY ==
[2024-09-21 10:50] LABS: Basophils Absolute Auto 0.1 K/mm3 (0.0-0.1); Eosinophils Absolute Auto 0.3 K/mm3 (0-0.3); Eosinophils Percent Auto 3.9 % (0-4.4); Hematocrit 35.4 % (37.0-47.0); Hemoglobin 11.1 g/dL (12.0-15.0); Immature Granulocyte Absolute 0.03 K/mm3 (0.00-0.031); Immature Granulocyte Percent A 0.4 % (0-0.5); Lymphocytes Absolute Auto 1.63 K/mm3 (0.9-3.2); Lymphocytes Percent Auto 21.4 % (18.3-44.2); Mean Corpuscular HGB Conc 31.4 g/dl (32-36); Mean Corpuscular Hemoglobin 32.2 pg (26-34); Mean Corpuscular Volume 102.6 fl (80-100); Mean Platelet Volume 9.2 fl (7.4-10.4); Monocytes Absolute Auto 0.6 K/mm3 (0.1-0.6); Neutrophils Percent Auto 65.3 % (45.5-73.1); Platelet Count Result 312 k/mm3 (150-375); Red Blood Count 3.45 M/mm3 (4.2-5.4); Red Cell Distribution Width 12.7 % (11.5-14.5); White Blood Count 7.6 K/mm3 (4.5-10.0)
[2024-09-21 13:53] LABS: Iron 81 ug/dL (37-170)
[2024-09-21 13:56] LABS: Anion Gap 11 mmol/L (4-12); Blood Urea Nitrogen 24 mg/dL (7-17); Calcium 9.2 mg/dL (8.4-10.2); Carbon Dioxide 23 mmol/L (22-30); Chloride 106 mmol/L (98-107); Estimated Glomerular Filt Rate 43; Glucose 110 mg/dL (65-110); Sodium 140 mmol/L (137-145)
[2024-09-21 14:40] LABS: Percent Iron Saturation 27 % (20-50)
[2024-09-21 15:25] LABS: Folic Acid 13.8 ng/mL (2.76->20)
== END 2024-09-21 10:36 | disposition home or self-care (01) ==
PROVIDERS: PCP Nurse Practitioner; Visit Provider Internal Medicine Hematology & Oncology
DX: D64.9 Anemia, unspecified (principal)
CPT/HCPCS: 36415; 80048; 82607; 82728; 82746; 83540; 83550; 85025

== ENCOUNTER 2025-02-07 10:25 | Outpatient (CLI) | payer MEDICARE, SELFPAY ==
--- OUTSIDE RECORDS SUMMARY | 2025-02-07 11:19 | XMS_ITS | Referral Summary ---
Author Organization [facility] Address [address] [place] [address] Care Team Providers Care Security Guards Dispatcher Name Role Phone Garcia Sotelo Primary Care Provider [phone] Allergies Active Allergy Reactions Criticality Noted Date Comments Sulfa (Sulfonamide Antibiotics) Sulfanilamide Social History Tobacco Use Types Packs/Day Years Used Date Smoking Tobacco: Never Assessed Alcohol Use Standard Drinks/Week Comments No 0 (1 standard drink = 0.6 oz pur e alcohol) Comments No Sex and Gender Information Value Date Recorded Sex Assigned at Not on file Legal Sex Female 2:09 AM VIDEO TAPE DUPLICATOR Gender Identity Not on file Sexual Orientation Not on file Last Filed Vital Signs Vital Sign Reading Time Taken Comments Blood Pressure 130/74 01/31/2014 9:52 AM CDT Pulse 72 01/31/2014 9:52 AM CDT Temperature - - Respiratory Rate - - Oxygen Saturation - - Inhaled Oxygen Concentration - - Weight 81.6 kg (180 lb) 09/11/2022 9:14 AM CDT Height 167.6 cm (5' 6 ) 09/11/2022 9:14 AM CDT Body Mass Index 29.05 09/11/2022 9:14 AM CDT Plan of Treatment Not on file Procedures Procedure Name Priority Date/Time Associated Diagnosis Comments DEXA AXIAL SKELETON BONE DENSITY 1 OR MORE SITES Schedule Routine, Read Routine (OP Routine) 05/25/2018 2:58 PM CDT Asymptomatic menopausal state from Last 3 Months or Most Recently Relevant to Health Maintenance Results * Dexa Axial Skeleton Bone Density 1 or 2 Site (05/25/2018 2:58 PM CDT) Anatomical Region Laterality Modality Body N/A Other 05/25/2018 3:14 PM CDT Impressions 05/25/2018 3:15 PM CDT 1. NORMAL BONE MINERAL DENSITY OF THE LUMBAR SPINE. 2. NORMAL BONE MINERAL DENSITY OF THE RIGHT FOREARM. COMMENT: W.H.Liane. defines the T-score of between -1 and -2.5 as osteopenia, the level at which there may be an increased risk of developing osteoporosis and fractures in the future. Osteoporosis is defined as T-score lower than -2.5 (significantly increased risk of fracture due to osteoporosis). T-score is a comparison to peak bone mineral density of young adult reference population. Z-score is a comparison to bone mineral density of sex and age group population. Electronically signed by: Reji Tran M.D. Narrative 05/25/2018 3:15 PM CDT EXAM: DEXA Bone Density Axial HISTORY: Asymptomatic menopausal state 72-year-old postmenopausal female who states a history of calcium therapy. FINDINGS: LUMBAR SPINE: Mean bone mineral content is 1.298 g/cm2. The T-score is 2.3. RIGHT FOREARM: Mean bone mineral content is 0.732 g/cm2. The T-score is 0.6. Procedure Note Reji Tran MD - 05/25/2018 EXAM: DEXA Bone Density Axial HISTORY: Asymptomatic menopausal state 72-year-old postmenopausal female who states a history of calcium therapy. FINDINGS: LUMBAR SPINE: Mean bone mineral content is 1.298 g/cm2. The T-score is 2.3. RIGHT FOREARM: Mean bone mineral content is 0.732 g/cm2. The T-score is 0.6. IMPRESSION: 1. NORMAL BONE MINERAL DENSITY OF THE LUMBAR SPINE. 2. NORMAL BONE MINERAL DENSITY OF THE RIGHT FOREARM. COMMENT: W.H.O. defines the T-score of between -1 and -2.5 as osteopenia, the level at which there may be an increased risk of developing osteoporosis and fractures in the future. Osteoporosis is defined as T-score lower than -2.5 (significantly increased risk of fracture due to osteoporosis). T-score is a comparison to peak bone mineral density of young adult reference population. Z-score is a comparison to bone mineral density of sex and age group population. Electronically signed by: Reji Tran M.D. Som Espinoza MD IM DXA PROCEDURES Final Result from Last 3 Months or Most Recently Relevant to Health Maintenance Insurance [facility] Care Teams Security Guards Dispatcher Relationship Specialty Start Date End Date Garcia Sotelo DO PCP - General Internal Medicine 08/10/22
--- OUTSIDE RECORDS SUMMARY | 2025-02-07 11:19 | XMS_ITS | Clinical Summary ---
Author Organization [facility] Address [address] [place] [address] Care Team Providers Care Pipe Blanks Cut Off Saw Operator Name Role Phone Christian Orona MD Primary Care Provider [phone] Allergies Active Allergy Reactions Criticality Noted Date Comments Sulfa (Sulfonamide Antibiotics) Other (See Comments) 03/25/2022 Medications metFORMIN (GLUCOPHAGE) 1,000 mg tablet Take 1,000 mg by mouth 2 times daily with meals. Active omeprazole (PriLOSEC) 20 mg Capsule, Delayed Release(E.C.) Take 20 mg by mouth daily. Active lisinopriL (PRINIVIL) 20 mg tablet Take 20 mg by mouth daily. Active carvediloL (COREG) 6.25 mg tablet Take 6.25 mg by mouth 2 times daily with meals. Active levothyroxine sodium (LEVOTHYROXINE ORAL) Take by mouth. Active atorvastatin (LIPITOR) 40 mg tablet Take 40 mg by mouth daily. Active Cranberry 400 mg Capsule Take by mouth. Active CALCIUM CITRATE-VITAMIN D3 ORAL Take by mouth. Active aspirin (GARRY) 325 mg tablet Take 325 mg by mouth daily. Active acetaminophen (TYLENOL) 325 mg tablet Take 325 mg by mouth every 4 hours as needed. Active Contour Next Test Strips Strip USE TO TEST ONCE DAILY 04/03/2022 Active testosterone 30 mg/actuation (1.5 mL) Solution in Metered Pump w/Deborah USE TO TEST ONCE DAILY 06/15/2020 Active pioglitazone (ACTOS) 15 mg tablet Take 1 Tablet by mouth daily. 08/10/2024 Active Active Problems Problem Noted Date Diagnosed Date Macrocytic anemia 03/25/2022 Encounters Date Type Department Care Team Description 12/25/2024 External Device Data [facility] ABSTRACTION Provider, Abstract 11/29/2024 External Device Data [facility] ABSTRACTION Provider, Abstract 11/28/2024 External Device Data [facility] ABSTRACTION Provider, Abstract 11/27/2024 External Device Data [facility] ABSTRACTION Provider, Abstract from Last 3 Months Family History Relation Name Status Comments Brother Alive Father Mother Sister Alive Social History Tobacco Use Types Packs/Day Years Used Date Smoking Tobacco: Never Smokeless Tobacco: Never Tobacco Cessation:Counseling Given: Not Answered Alcohol Use Standard Drinks/Week Comments Yes 0 (1 standard drink = 0.6 oz pur e alcohol) Comments Unknown Sex and Gender Information Value Date Recorded Sex Assigned at Not on file Legal Sex Female 11:33 AM CDT Gender Identity Not on file Sexual Orientation Not on file Last Filed Vital Signs Vital Sign Reading Time Taken Comments Blood Pressure 151/69 09/28/2024 9:25 AM RN SHIFT MGR Pulse 70 09/28/2024 9:25 AM RN SHIFT MGR Temperature 36.3 C (97.3 F) 09/28/2024 9:25 AM RN SHIFT MGR Respiratory Rate 16 09/28/2024 9:25 AM RN SHIFT MGR Oxygen Saturation 95% 09/28/2024 9:25 AM RN SHIFT MGR Inhaled Oxygen Concentration - - Weight 85.3 kg (188 lb) 09/28/2024 9:25 AM RN SHIFT MGR Height 165.1 cm (5' 5 ) 04/27/2022 2:20 PM CDT Body Mass Index 31.28 04/27/2022 2:20 PM CDT Plan of Treatment Upcoming Encounters Date Type Department Care Team (Late st Contact Info) Description 03/22/2025 11:00 AM CDT Office Visit [facility] Oncology and Hematology - [facility] [facility] [address] [place] [address] Johnny Cook MD [address] [place] [address] Health Maintenance Due Date Last Done Comments DIABETES ANNUAL FOOT EXAM 1963 DIABETES MICROALBUMIN ANNUAL SCREEN 1963 LDL CHOLESTEROL ANNUAL 1963 DTAP/TDAP/TD VACCINES (1 - Tdap) 1964 ZOSTER VACCINE (1 of 2) 1995 PNEUMOCOCCAL VACCINE 50+ YEA RS (2 of 2 - PPSV23) 12/06/2016 10/11/2016 RSV VACCINE (60+ or ) (1 - 1-dose 75+ series) 2020 INFLUENZA VACCINE (#1) 2024 08/14/2017, 2016 DIABETES HBA1C Q 6 MONTHS 02/03/20252023, 01/20/2023, 07/15/2022, Additional history exists DIABETES ANNUAL RETINAL EXAM 02/26/2025 02/27/2024 OSTEOPOROSIS SCREENING Completed , 05/25/2018, 08/27/2015 COLORECTAL SCREENING Discontinued 03/17/2022 Colorectal Cancer Screening Discontinued FIT-DNA Q 3 years Discontinued FIT/FOBT Q 1 year Discontinued Flex Sig/CT Colonography Q 5 years Discontinued Insurance MEDICARE PART A AND B [facility] Care Teams Pipe Blanks Cut Off Saw Operator Relationship Specialty Start Date End Date Christian Orona MD PCP - General Family Practice 03/14/23
--- OUTSIDE RECORDS SUMMARY | 2025-02-07 11:19 | XMS_ITS | Clinical Summary ---
Author Organization [facility] Address [address] [place] [address] Care Team Providers Care Law Researcher Name Role Phone Olivia Hawthorne MD Primary Care Provider [phone] Olivia Hawthorne MD Unavailable [phone] Source Comments [facility],non-owned Affiliates and Associated Physician Practices is amultiple site organization consisting of ambulatory clinics and hospital sitesin [place], [place], [place] and [place]. This disclosure is being madepursuant to the Care Everywhere program and may not contain all information available regarding this patient. Last updated 18.[facility] Allergies Active Allergy Reactions Criticality Noted Date Comments Sulfa Drugs Urticaria Medium 08/14/2017 Medications * Be aware that medications may not be up to date on this document. Alwaysverify current medications with the patient. Medication Sig Dispensed Refills Start Date End Date Status metFORMIN (GLUCOPHAGE) 1000 MG tablet Take 1,000 mg by mouth 2 times daily with morning and evening meal Active pantoprazole EC (PROTONIX) 40 MG tablet Take 40 mg by mouth once daily Active lisinopril (PRINIVIL; ZESTRIL) 10 MG tablet Take 10 mg by mouth once daily Active carvedilol (COREG) 3.125 MG tablet Take 3.125 mg by mouth 2 times daily with morning and evening meal Active atorvastatin (LIPITOR) 40 MG tablet Take 40 mg by mouth at bedtime Active multivitamin daily (THERAGRAN) tablet Take 1 Tab by mouth daily with food Active Ptcigdn-Qgfbwtocl-Q itamin D (CALCIUM MAGNESIUM PO) Active ferrous sulfate 325 (65 FE) MG tablet Take 325 mg by mouth once daily Active aspirin EC (ECOTRIN) 81 MG tablet Take 81 mg by mouth once daily Active CRANBERRY PO Take 4,200 mg by mouth once daily Active acetaminophen (TYLENOL) 325 MG tablet Take 325 mg by mouth every 4 hours as needed for Fever or Pain Maximum allowable Acetaminophen amount = 4 Grams (4000 mg) / 24 hours. Active METFORMIN HCL ER, MOD, PO Active pantoprazole EC (PROTONIX) 20 MG tablet Take 20 mg by mouth once daily Active LISINOPRIL PO Active CARVEDILOL PO Active atorvastatin (LIPITOR) 40 MG tablet Take 40 mg by mouth at bedtime Active aspirin (ASPIRIN) 81 MG tablet Take 81 mg by mouth once daily Active IRON, FERROUS GLUCONATE, PO Active Calcium Citrate-Vitamin D (CALCIUM + D PO) Active Immunizations Name Administration Dates Next Due INFLUENZA VACCINE, HIGH-DOSE , QUADR. (FLUZONE HIGH-DOSE QUADRIVALENT; 65Y+), 0.7 ML (HD-IIV4) 08/14/2017 Family History Medical History Relation Name Comments Cancer - Prostate Father Cancer - Pancreatic Paternal Grandmother Diabetes Sister Relation Name Status Comments Father Paternal Grandmother Sister Social History Tobacco Use Types Packs/Day Years Used Date Smoking Tobacco: Never Smokeless Tobacco: Never Alcohol Use Standard Drinks/Week Comments No 0 (1 standard drink = 0.6 oz pur e alcohol) Sex and Gender Information Value Date Recorded Sex Assigned at Not on file Gender Identity Not on file Sexual Orientation Not on file Last Filed Vital Signs Vital Sign Reading Time Taken Comments Blood Pressure 128/84 08/14/2017 2:19 PM CDT Pulse 83 08/14/2017 2:19 PM CDT Temperature 37.1 C (98.7 F) 08/14/2017 2:19 PM CDT Respiratory Rate 18 08/14/2017 2:19 PM CDT Oxygen Saturation 97% 08/14/2017 2:19 PM CDT Inhaled Oxygen Concentration - - Weight 83 kg (183 lb) 08/14/2017 2:19 PM CDT Height 167.6 cm (5' 6 ) 08/14/2017 2:19 PM CDT Body Mass Index 29.54 08/14/2017 2:19 PM CDT Plan of Treatment Health Maintenance Due Date Last Done Comments BONE DENSITY TESTING 1945 MEDICARE AWV 12 MONTHS 1945 DTAP/TDAP/TD VACCINES (1 - Tdap) 1964 PNEUMOCOCCAL VACCINE 50+ (1 of 1 - PCV) 1995 ZOSTER VACCINE (1 of 2) 1995 Respiratory Syncytial Virus (RSV) Vaccine Pt: or over 60 yrs (1 - 1-dose 75+ series) 2020 COVID-19 VACCINE ( - 2023-2 5 season) 2024 INFLUENZA VACCINE (#1) 2024 08/14/2017 DEPRESSION SCREENING 11/07/2024 HEPATITIS B VACCINE Aged Out No longe r eligible based on patient's age to complete this topic HIB VACCINE Aged Out No longer eligi ble based on patient's age to complete this topic HPV VACCINE Aged Out No longer eligi ble based on patient's age to complete this topic MENINGOCOCCAL (Group B) VACC INE SHARED DECISION-MAKING Aged Out No longer eligibl e based on patient's age to complete this topic MENINGOCOCCAL GROUPS A/C/Y/W VACCINE Aged Out No longer eligible b ased on patient's age to complete this topic Care Teams Law Researcher Relationship Specialty Start Date End Date Followell, Olivia, MD [address] [place] [address] PCP - General Family Medicine 08/14/17 Olivia Hawthorne MD [address] [facility] [address] [place] [id number] Family Medicine 08/14/17
--- OUTSIDE RECORDS SUMMARY | 2025-02-07 11:19 | XMS_ITS | Clinical Summary ---
Author Organization [facility] Address [address], [place] [address] Phone Care Team Providers Care Reed Worker Name Role Phone Som Espinoza MD Primary Care Provider [phone] Allergies Active Allergy Reactions Criticality Noted Date Comments Sulfa Antibiotics Hives Medium 08/14/2017 Medications Medication Sig Dispensed Refills Start Date End Date Status atorvastatin (LIPITOR) 40 MG tablet 1 tab/cap qday 0 10/10/2016 Active metFORMIN (GLUCOPHAGE) 1000 MG tablet 1 tab/cap bid 0 10/10/2016 Active carvedilol (COREG) 3.125 MG tablet 1 tab/cap bid 0 10/10/2016 Active CONTOUR NEXT TEST test strip USE TO TEST ONCE DAILY 06/15/2020 Active levothyroxine (SYNTHROID, LEVOTHROID) 50 MCG tablet Take 50 mcg by mouth 1 (one) time each day 2020 Active omeprazole (PriLOSEC) [address] capsule Take by mouth 1 (one) time each day 06/02/2020 Active JANUVIA 50 MG tablet Take 50 mg by mouth 1 (one) time each day 06/04/2020 Active Uatryxx-Dkgpzfnhr-Sqfnv in D 500-250-125 MG-MG-UNIT tablet Take by mouth Acti ve Cranberry-Vitamin C-Vitamin E 4200-20-3 MG-MG-UNIT capsule Take 4,200 mg by mouth daily Active Ferrous Sulfate (IRON) 325 (65 Fe) MG tablet Take by mouth Active lisinopril (PRINIVIL) 20 MG tablet 09/12/2021 Active Active Problems Problem Noted Date Diagnosed Date Chronic kidney disease, stage 3 (moderate) 12/08 Abnormal result of kidney function study 016 Type 2 diabetes mellitus without complication Essential (primary) hypertension 10/10/2016 Other hyperlipidemia 10/10/2016 Overview (01/20/2019): Converted unresolved ICD9, potential mismatch. Gastroesophageal reflux disease Hypertension Hypothyroidism Hyperlipidemia Hyperkalemia Immunizations Name Administration Dates Next Due Fluzone High-Dose 08/13/2020 Influenza Split High Dose Preservative Free IM 1 Pneumococcal Conjugate 13-Valent 10/11/2016 Sars-cov-2, Unspecified 02/28/2021 Family History Medical History Relation Comments Malignant neoplastic disease Father Diabetes mellitus Sibling 1 Hypertensive disorder Sibling 2 Cerebrovascular accident Sibling 3 Kidney disease Neg Hx Kidney stone Neg Hx Relation Status Comments Father Sibling 1 Sibling 2 Sibling 3 Social History Tobacco Use Types Packs/Day Years Used Date Smoking Tobacco: Never Smokeless Tobacco: Never Alcohol Use Standard Drinks/Week Comments Never 0 (1 standard drink = 0.6 oz pur e alcohol) AUDIT-C Answer Date Recorded Q1: How often do you have a drink containing alc ohol? Never 07/17/2020 Average Number of Drinks Not on file 020 Frequency of Binge Drinking Not on file 07/08 Sex and Gender Information Value Date Recorded Sex Assigned at Not on file Gender Identity Not on file Sexual Orientation Not on file Last Filed Vital Signs Vital Sign Reading Time Taken Comments Blood Pressure 132/76 09/30/2021 9:32 AM BOWSTRING MAKER Pulse - - Temperature 37.4 C (99.4 F) 09/30/2021 9:32 AM BOWSTRING MAKER Respiratory Rate 18 09/30/2021 9:32 AM BOWSTRING MAKER Oxygen Saturation - - Inhaled Oxygen Concentration - - Weight 84.4 kg (186 lb) 09/30/2021 9:32 AM BOWSTRING MAKER Height 167.6 cm (5' 6 ) 09/30/2021 9:32 AM BOWSTRING MAKER Body Mass Index 30.02 09/30/2021 9:32 AM BOWSTRING MAKER Plan of Treatment Health Maintenance Due Date Last Done Comments Pneumococcal PPSV23/PCV13 65 + Years / Low and Medium Risk (2 of 3 - PPSV23 or PCV20) 10/11/2017 10/11/2016 Influenza Vaccine (#1) 2024 Care Teams Reed Worker Relationship Specialty Start Date End Date Som Espinoza MD [address] [place] [id number] PCP - General Family Medicine 07/17/20
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
[2025-02-07 12:16] LABS: Alanine Aminotransferase 17 U/L (6-35); Albumin Level 4.2 g/dL (3.5-5.1); Alkaline Phosphatase 107 U/L (38-126); Anion Gap 13 mmol/L (4-12); Aspartate Amino Transferase 22 U/L (14-36); Bilirubin,Total 0.5 mg/dL (0.2-1.3); Blood Urea Nitrogen 24 mg/dL (7-17); Calcium 8.5 mg/dL (8.4-10.2); Carbon Dioxide 22 mmol/L (22-30); Chloride 106 mmol/L (98-107); Cholesterol 152 mg/dL (0-200); Estimated Glomerular Filt Rate 47; Glucose 123 mg/dL (65-110); HDL Direct 53 mg/dL; Potassium 5.1 mmol/L (3.4-5.0); Sodium 141 mmol/L (137-145); Triglycerides 166 mg/dL (<150)
[2025-02-07 12:27] LABS: LDL Cholesterol Direct 60 mg/dL
[2025-02-07 12:51] LABS: Free T4 Free Thyroxine 1.22 ng/dL (0.78-2.19); Vitamin D 25 Hydroxy 40.7 ng/mL
[2025-02-07 13:08] LABS: Hemoglobin A1C 6.5 % (<5.7)
== END 2025-02-07 10:26 | disposition home or self-care (01) ==
PROVIDERS: PCP Nurse Practitioner; Visit Provider Nurse Practitioner
DX: E78.5 Hyperlipidemia, unspecified (principal); E03.9 Hypothyroidism, unspecified; E11.9 Type 2 diabetes mellitus without complications; E55.9 Vitamin D deficiency, unspecified
CPT/HCPCS: 36415; 80053; 80061; 82306; 83036; 84439; 84443

== ENCOUNTER 2025-03-18 10:20 | Outpatient (CLI) | payer MEDICARE, SELFPAY ==
--- OUTSIDE RECORDS SUMMARY | 2025-03-18 10:24 | XMS_ITS | Clinical Summary ---
Author Organization [facility] Address [address] [place] [address] Care Team Providers Care Courseware Developer Name Role Phone Olivia Hawthorne MD Primary Care Provider [phone] Olivia Hawthorne MD Unavailable [phone] Source Comments [facility],non-owned Affiliates and Associated Physician Practices is amultiple site organization consisting of ambulatory clinics and hospital sitesin [place], [place], [place] and [place]. This disclosure is being madepursuant to the Care Everywhere program and may not contain all information available regarding this patient. Last updated 18.[facility] Allergies Active Allergy Reactions Criticality Noted Date Comments Sulfa Drugs Urticaria Medium 08/14/2017 Medications * Be aware that medications may not be up to date on this document. Alwaysverify current medications with the patient. metFORMIN (GLUCOPHAGE) 1000 MG tablet Take 1,000 [...] Tab by mouth daily with food Active Calcium-Magnes ium-Vitamin D (CALCIUM MAGNESIUM PO) Active ferrous sulfate [...] Active IRON, FERROUS GLUCONATE, PO Active Calcium Citrate-Vitami n D (CALCIUM + D PO) Active Immunizations Immunization Administration Dates Next Due INFLUENZA VACCINE, HIGH-DOSE [...] at Not on file Legal Sex Female 12:49 PM CDT Gender Identity Not on file Sexual [...] Last Done Comments BONE DENSITY TESTING 1945 DTAP/TDAP/TD VACCINES (1 - Tdap) 1964 PNEUMOCOCCAL VACCINE 50+ (1 of 1 - PCV) 1995 ZOSTER VACCINE (1 of 2) 1995 Respiratory Syncytial Virus (RSV) Vaccine Pt: or over 60 yrs (1 - 1-dose 75+ series) 2020 COVID-19 VACCINE (1 - 2023-2 5 season) 2024 DEPRESSION SCREENING 11/07/2024 INFLUENZA VACCINE (Season Ended) 2025 08/14/20 17 HEPATITIS B VACCINE Aged Out No longe [...] on patient's age to complete this topic Insurance MEDICARE [facility] [place] [address] MEDICARE MEDICARE COMMERCIAL [facility] Care Teams Courseware Developer Relationship Specialty Start Date End Date Olivia Hawthorne MD [address] [facility] [address] [place] [address] PCP - General Family Medicine 08/14/17 Olivia Hawthorne MD [address] [facility] [address] [place] [address] (work) Family Medicine 08/14/17
--- OUTSIDE RECORDS SUMMARY | 2025-03-18 10:24 | XMS_ITS | Clinical Summary ---
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 Electronically signed by: Reji Tran M.D. [facility] Olga QUIROGA IM DXA PROCEDURES Final Result from Last 3 Months or Most Recently Relevant to Health Maintenance Insurance MEDICARE [place] [employer] [place] [employer]ICARE [employer] [place] Care Teams Tools Developer Relationship Specialty Start Date End Date Garcia Sotelo DO PCP - General Internal Medicine 08/10/22
--- OUTSIDE RECORDS SUMMARY | 2025-03-18 10:24 | XMS_ITS | Clinical Summary ---
Author Organization [facility] Address [address] [place] [id number] Phone Care Team Providers Care School Bus Dispatcher Name Role Phone Som Espinoza MD Primary Care Provider [phone] Allergies Active Allergy Reactions Criticality Noted Date Comments Sulfa Antibiotics Hives Medium 08/14/2017 Medications atorvastatin (LIPITOR) 40 MG tablet 1 tab/cap [...] 1 (one) time each day 06/04/2020 Active Calcium-Magnesiu m-Vitamin D 500-250-125 MG-MG-UNIT tablet Take by mouth Active Cranberry-Vitami n C-Vitamin E 4200-20-3 MG-MG-UNIT capsule Take 4,200 mg by mouth daily Active Ferrous Sulfate (IRON) 325 (65 Fe) MG tablet Take by mouth Active lisinopril (PRINIVIL) 20 MG tablet 09/12/2021 Active Active Problems Problem Noted Date Diagnosed Date Chronic kidney disease, stage 3 (moderate) 02/01 /2017 Abnormal result of kidney function study 016 Type 2 diabetes mellitus without complication Essential (primary) hypertension 10/10/2016 Other hyperlipidemia 10/10/2016 Overview (01/20/2019): Converted unresolved ICD9, potential mismatch. Gastroesophageal reflux disease Hypertension Hypothyroidism Hyperlipidemia Hyperkalemia Immunizations Immunization Administration Dates Next Due Fluzone High-Dose 08/13/2020 [...] of Binge Drinking Not on file 07/08 Comments Unknown Sex and Gender Information Value Date Recorded Sex Assigned at Not on file Legal Sex Female 8:30 AM [facility] Gender Identity Not on file Sexual Orientation Not on file Last Filed Vital Signs Vital Sign Reading Time Taken Comments Blood Pressure 132/76 09/30/2021 9:32 AM DRESS DRAPER Pulse - - Temperature 37.4 C (99.4 F) 09/30/2021 9:32 AM DRESS DRAPER Respiratory Rate 18 09/30/2021 9:32 AM DRESS DRAPER Oxygen Saturation - - Inhaled Oxygen Concentration - - Weight 84.4 kg (186 lb) 09/30/2021 9:32 AM DRESS DRAPER Height 167.6 cm (5' 6 ) 09/30/2021 9:32 AM DRESS DRAPER Body Mass Index 30.02 09/30/2021 9:32 AM DRESS DRAPER Plan of Treatment Health Maintenance Due Date Last Done Comments Pneumococcal PPSV23/PCV13 65 + Years / Low and Medium Risk (2 of 3 - PPSV23) 10/11/2017 10/11/2016 Influenza Vaccine (Season Ended) 2025 Insurance MEDICARE [employer] [facility] MEDICARE SUPPLEMENT Care Teams School Bus Dispatcher Relationship Specialty Start Date End Date Som Espinoza MD [address] [place] [address] PCP - General Family Medicine 07/17/20
--- OUTSIDE RECORDS SUMMARY | 2025-03-18 10:24 | XMS_ITS | Referral Summary ---
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
--- OUTSIDE RECORDS SUMMARY | 2025-03-18 10:24 | XMS_ITS | Clinical Summary ---
Author Organization [facility] Address [address] [place] [address] Care Team Providers Care Employee Relations Assistant Name Role Phone Christian Orona MD Primary Care Provider [phone] Allergies Active Allergy Reactions Criticality Noted Date [...] Comments Blood Pressure 151/69 09/28/2024 9:25 AM DRY PAN FEEDER Pulse 70 09/28/2024 9:25 AM DRY PAN FEEDER Temperature 36.3 C (97.3 F) 09/28/2024 9:25 AM DRY PAN FEEDER Respiratory Rate 16 09/28/2024 9:25 AM DRY PAN FEEDER Oxygen Saturation 95% 09/28/2024 9:25 AM DRY PAN FEEDER Inhaled Oxygen Concentration - - Weight 85.3 kg (188 lb) 09/28/2024 9:25 AM DRY PAN FEEDER Height 165.1 cm (5' 5 ) 04/27/2022 2:20 PM CDT Body Mass Index 31.28 04/27/2022 2:20 PM CDT Plan of Treatment Upcoming Encounters Date Type Department Care Team (Late st Contact Info) Description 03/22/2025 11:00 AM CDT Office Visit [facility] Oncology and Hematology [facility] [address] [address] [place] [address] Johnny Cook MD [address] [place] [address] Health Maintenance Due Date Last Done Comments DIABETES ANNUAL FOOT EXAM 1963 DIABETES MICROALBUMIN ANNUAL SCREEN 1963 LDL CHOLESTEROL ANNUAL 1963 DTAP/TDAP/TD VACCINES (1 - Tdap) 1964 Traditional Medicare (ACO) A nnual Wellness Visit 1964 ZOSTER VACCINE (1 of 2) 1995 PNEUMOCOCCAL VACCINE 50+ YEA RS (2 of 2 - PPSV23) 12/06/2016 10/11/2016 RSV VACCINE (60+ or ) (1 - 1-dose 75+ series) 2020 OSTEOPOROSIS SCREENING 05/25/2023 8, 05/25/2018, 08/27/2015 INFLUENZA VACCINE (#1) 2024 08/14/2017, 2016 DIABETES HBA1C Q 6 MONTHS 02/03/20252023, 01/20/2023, 07/15/2022, Additional history exists DIABETES ANNUAL RETINAL EXAM 02/26/2025 02/27/2024 COLORECTAL SCREENING Discontinued 03/17/2022 Colorectal Cancer Screening Discontinued FIT-DNA Q 3 years Discontinued FIT/FOBT Q 1 year Discontinued Flex Sig/CT Colonography Q 5 years Discontinued Insurance MEDICARE PART A AND B [facility] Care Teams Employee Relations Assistant Relationship Specialty Start Date End Date Christian Orona MD PCP - General Family Practice 03/14/23
[2025-03-18 10:43] LABS: Basophils Absolute Auto 0.1 K/mm3 (0.0-0.1); Eosinophils Absolute Auto 0.4 K/mm3 (0-0.3); Eosinophils Percent Auto 4.2 % (0-4.4); Hematocrit 35.7 % (37.0-47.0); Hemoglobin 11.4 g/dL (12.0-15.0); Immature Granulocyte Absolute 0.03 K/mm3 (0.00-0.031); Immature Granulocyte Percent A 0.4 % (0-0.5); Lymphocytes Absolute Auto 1.43 K/mm3 (0.9-3.2); Mean Corpuscular HGB Conc 31.9 g/dl (32-36); Mean Corpuscular Hemoglobin 32.4 pg (26-34); Mean Corpuscular Volume 101.4 fl (80-100); Mean Platelet Volume 9.5 fl (7.4-10.4); Monocytes Absolute Auto 0.6 K/mm3 (0.1-0.6); Monocytes Percent Auto 6.9 % (2.6-8.5); Neutrophils Absolute Auto 5.9 K/mm3 (1.3-6.7); Neutrophils Percent Auto 70.5 % (45.5-73.1); Platelet Count Result 336 k/mm3 (150-375); Red Blood Count 3.52 M/mm3 (4.2-5.4); Red Cell Distribution Width 12.7 % (11.5-14.5); White Blood Count 8.4 K/mm3 (4.5-10.0)
[2025-03-18 11:08] LABS: Anion Gap 10 mmol/L (4-12); Blood Urea Nitrogen 26 mg/dL (7-17); Calcium 9.1 mg/dL (8.4-10.2); Carbon Dioxide 26 mmol/L (22-30); Chloride 106 mmol/L (98-107); Estimated Glomerular Filt Rate 38; Glucose 144 mg/dL (65-110); Potassium 5.2 mmol/L (3.4-5.0); Sodium 142 mmol/L (137-145)
[2025-03-18 11:22] LABS: Iron 87 ug/dL (37-170)
[2025-03-18 11:31] LABS: Percent Iron Saturation 31 % (20-50)
== END 2025-03-18 10:21 | disposition home or self-care (01) ==
LOC: ANHLAB 10:22
PROVIDERS: PCP Nurse Practitioner; Visit Provider Internal Medicine Hematology & Oncology
DX: D64.9 Anemia, unspecified (principal)
CPT/HCPCS: 36415; 80048; 82607; 82728; 82746; 83540; 83550; 85025

== ENCOUNTER 2025-08-15 10:37 | Outpatient (CLI) | payer MEDICARE, SELFPAY ==
[2025-08-15 12:04] LABS: Hemoglobin A1C 6.3 % (<5.7)
[2025-08-15 12:10] LABS: Alanine Aminotransferase 14 U/L (6-35); Albumin Level 4.0 g/dL (3.5-5.1); Alkaline Phosphatase 101 U/L (38-126); Anion Gap 9 mmol/L (4-12); Aspartate Amino Transferase 20 U/L (14-36); Bilirubin,Total 0.6 mg/dL (0.2-1.3); Blood Urea Nitrogen 27 mg/dL (7-17); Calcium 8.8 mg/dL (8.4-10.2); Carbon Dioxide 24 mmol/L (22-30); Chloride 106 mmol/L (98-107); Cholesterol 144 mg/dL (0-200); Estimated Glomerular Filt Rate 45; Glucose 118 mg/dL (65-110); HDL Direct 50 mg/dL; Potassium 4.7 mmol/L (3.4-5.0); Sodium 139 mmol/L (137-145); Total Protein 7.3 g/dL (6.3-8.2); Triglycerides 122 mg/dL (<150)
[2025-08-15 12:47] LABS: Thyroid Stimulating Hormone 3.440 uIU/mL (0.465-4.680)
== END 2025-08-15 10:38 | disposition home or self-care (01) ==
PROVIDERS: PCP Nurse Practitioner; Visit Provider Nurse Practitioner
DX: E78.5 Hyperlipidemia, unspecified (principal); E11.9 Type 2 diabetes mellitus without complications; E03.9 Hypothyroidism, unspecified
CPT/HCPCS: 36415; 80053; 80061; 83036; 84443